=== PATIENT | female | born 1955 | race Hispanic/Latino ===

== ENCOUNTER → 2023-12-12 | Outpatient (CLI) | payer OTHER | END | disposition home or self-care (01) | LOC: SHCH 14:50 | PROVIDERS: ATTEND Student in an Organized Health Care Education/Training Program | DX: I10 Essential (primary) hypertension (principal) | CPT/HCPCS: 93306 ==

== ENCOUNTER → 2025-02-21 | Outpatient (CLI) | payer OTHER ==
[2025-02-21 22:38] VITALS: PULSE 66; RESP 14
[2025-02-21 23:00] VITALS: PULSE 65; RESP 14
[2025-02-21 23:19] VITALS: PULSE 65; RESP 12
[2025-02-21 23:59] VITALS: PULSE 63; RESP 12
[2025-02-22] VITALS (13 sets, daily range): PULSE 61–71; RESP 6–15
== END | disposition home or self-care (01) ==
LOC: SLP 20:36
PROVIDERS: ATTEND Internal Medicine
DX: G47.33 Obstructive sleep apnea (adult) (pediatric) (principal)
CPT/HCPCS: 95811